=== PATIENT | male | born 1985 | race Caucasian/White ===

== ENCOUNTER 2022-09-08 08:49 | Emergency (ER) | payer OTHER, SELFPAY ==
--- NOTE | 2022-09-08 09:00 | ED.GENADULT ---
HPI - General Adult General Chief complaint: Anxiety Stated complaint: anxiety attack; chest heaviness Time Seen by Provider: 09/08/22 09:00 History of Present Illness HPI narrative: the patient is a 37-year-old male with history of anxiety attacks, that happen every few months, last episode approximately 5 months ago. Other comorbidities include hypertension on hydrochlorothiazide and lisinopril, depression bipolar affective disorder on lithium and citalopram, as well as hyperlipidemia. He does smoke cigarettes. No alcohol use. No drug use. The patient was driving home with his in the car by he suddenly felt quite anxious, with symptoms typical of his anxiety attacks, onset at 7:30 a.m. this morning. he felt warm and flushed, with a fast heart rate, and dizziness. He is feeling quite anxious. No stressors out of the ordinary. Some chest heaviness that he described earlier with symptoms improved. No dyspnea. No abdominal pain. Nausea present but no vomiting. No urinary symptoms. No URI symptoms. Related Data Home Medications Medication Instructions Recorded Confirmed atorvastatin 20 mg tablet 20 mg PO DAILY 09/08/22 09/08/22 citalopram 40 mg tablet (Celexa) 40 mg PO HS 09/08/22 09/08/22 lisinopril 20 1 tablet PO DAILY 09/08/22 09/08/22 mg-hydrochlorothiazide 25 mg tablet lithium carbonate 450 mg 450 mg PO BID 09/08/22 09/08/22 tablet,extended release Allergies Allergy/AdvReac Type Severity Reaction Status Date / Time brompheniramine Allergy Hives Verified 09/08/22 08:58 [From Dimetapp (brompheniramine-PPA)] phenylpropanolamine Allergy Hives Verified 09/08/22 08:58 [From Dimetapp (brompheniramine-PPA)] sertraline [From Zoloft] Allergy Hives Verified 09/08/22 08:58 Review of Systems Review of Systems: All systems reviewed & are unremarkable except as noted in HPI and below Constitutional: Constitutional: Denies chills, Denies excessive sweating, Denies fatigue, Denies fever(s), Denies headache(s) and Denies weakness Eyes: Eyes: Denies change in vision and Denies photophobia ENT: Denies dysphagia, Denies dizziness, Denies headache(s), Denies lip swelling, Denies nasal congestion, Denies sore throat and Denies tongue swelling Cardiovascular: Cardiovascular: Denies chest pain, Denies syncope, Reports rapid heart rate and Denies dyspnea Respiratory: Respiratory: Denies cough, Denies dyspnea and Denies wheezing Gastrointestinal: Gastrointestinal: Denies abdominal pain, Denies constipation, Denies dysphagia, Denies diarrhea, Reports nausea and Denies vomiting Genitourinary: Genitourinary: Denies hematuria, Denies dysuria, Denies urinary frequency and Denies urinary urgency Musculoskeletal: Musculoskeletal: Denies back pain, Denies myalgias, Denies arthralgias, Denies joint swelling and Denies numbness Integumentary/Breasts: Skin/Breast: Denies pruritus, Denies erythema and Denies rash Neurologic: Denies confusion, Reports dizziness, Denies syncope, Denies headache(s), Denies focal weakness, Denies numbness and Denies weakness Psychiatric: Psychiatric: Reports anxiety and Denies confusion Endocrine: Endocrine: Denies excessive sweating and Denies fatigue Hematologic/Lymphatic: Hematologic/Lymphatic: Denies easy bleeding and Denies easy bruising Allergic/Immunologic: Allergic/Immunologic: Denies lip swelling, Denies tongue swelling and Denies wheezing PMFSH Social History Social History Substance use type: does not use Exam Const: General: healthy appearing, no acute distress, alert and well nourished Nutritional Appearance: well nourished Orientation/consciousness: patient oriented x3 Limitations: no limitations HENMT: Head: normal to inspection Ears: external ears normal Face/Nose/Sinus: normal facial exam Face and sinus: normal facial exam Mouth: Yes moist mucous membranes Throat: posterior oropharynx normal
[2022-09-08 09:04] VITALS: BP 114/79; PULSE 70; RESP 20; O2SAT 99
--- NOTE | 2022-09-08 09:05 | ECG_ITS ---
Measurements Intervals [place] Rate: 70 P: 60 LA: 196 QRS: 44 QRSD: 93 T: 33 QT: 379 QTc: 409 Interpretive Statements SINUS RHYTHM NORMAL ECG NO PREVIOUS ECG AVAILABLE FOR COMPARISON Electronically Signed On 09-08-2022 9:40:27 CDT by Mauro Fox M.D.
[2022-09-08 09:15] VITALS: TEMP 36.9
[2022-09-08] MEDS: LORazepam INJ (*CRX) 2 MG/ML VIAL 0.5 MG IV PUSH (09:24)
[2022-09-08] MEDS: ONDANSETRON INJ 4 MG/2 ML VIAL IV PUSH (09:24)
[2022-09-08 09:25] LABS: Basophils Absolute Auto 0.05 K/mm3 (0.00-0.10); Basophils Percent Auto 0.8 % (0.0-1.0); Eosinophils Absolute Auto 0.31 K/mm3 (0.02-0.50); Eosinophils Percent Auto 5.1 % (1.0-6.0); Hematocrit 39.7 % (40.0-54.0); Hemoglobin 12.9 g/dL (14.0-18.0); Immature Granulocyte Absolute 0.02 K/mm3 (0.00-0.00); Immature Granulocyte Percent A 0.3 % (0.0-0.0); Lymphocytes Absolute Auto 1.91 K/mm3 (1.10-4.50); Lymphocytes Percent Auto 31.7 % (18.0-42.0); Mean Corpuscular HGB Conc 32.5 g/dL (32.0-36.0); Mean Corpuscular Hemoglobin 30.8 pg (27.0-31.0); Mean Corpuscular Volume 94.7 fL (78.0-102.0); Mean Platelet Volume 9.3 fl (8.7-11.0); Monocytes Absolute Auto 0.43 K/mm3 (0.10-0.90); Monocytes Percent Auto 7.1 % (2.0-11.0); Neutrophils Absolute Auto 3.3 K/mm3 (1.7-7.2); Platelet Count Result 293 K/mm3 (150-420); Red Blood Count 4.19 M/mm3 (4.70-6.10); Red Cell Distribution Width 12.6 % (11.6-14.4)
[2022-09-08 09:47] LABS: Alanine Aminotransferase 16 U/L (16-63); Albumin Level 3.9 g/dL (3.4-5.0); Alkaline Phosphatase 87 U/L (46-116); Anion Gap 6 mmol/L (8-16); Aspartate Amino Transferase 13 U/L (15-37); Bilirubin,Total 0.4 mg/dL (0.00-1.00); Blood Urea Nitrogen 16 mg/dL (7-18); Calcium 9.4 mg/dL (8.5-10.1); Carbon Dioxide 26 mmol/L (21-32); Chloride 104 mmol/L (98-108); Estimated CRCL calculation 84 ml/min; Estimated Glomerular Filt Rate > 60; Glucose 95 mg/dL (70-99); Magnesium 1.9 mg/dL (1.8-2.4); Osmolality Calculated 283 mOsm/kg (285-295); Potassium 4.1 mmol/L (3.5-5.1); Sodium 136 mmol/L (136-145); Total Protein 6.8 g/dL (6.4-8.2)
[2022-09-08 09:48] LABS: Troponin I < 4.0 ng/L (0.00-60.4)
[2022-09-08 10:52] VITALS: BP 101/56; PULSE 60; RESP 15; O2SAT 98
[2022-09-08 11:08] VITALS: BP 111/74; PULSE 61; RESP 16; TEMP 36.7; O2SAT 96
--- NOTE | 2022-09-08 11:08 | PC.NURSE ---
Pt states is feeling much better without anxiety or pain at this time.
== END 2022-09-08 11:15 | disposition home or self-care (01) ==
PROVIDERS: Emergency Provider Emergency Medicine
DX: F41.9 Anxiety disorder, unspecified (principal); E78.5 Hyperlipidemia, unspecified; F17.210 Nicotine dependence, cigarettes, uncomplicated
CPT/HCPCS: 36415; 80053; 83735; 84484; 85025; 93005; 96374; 96375; 99284; J2060; J2405

== ENCOUNTER 2022-10-07 18:30 | Emergency (ER) | payer OTHER, SELFPAY ==
[2022-10-07 18:32] VITALS: BP 136/92; PULSE 100; RESP 20; TEMP 36.6; O2SAT 97
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
[2022-10-07] MEDS: LORazepam (*CRX) 0.5 MG TABLET PO (18:58)
[2022-10-07 19:12] VITALS: BP 105/58; PULSE 68; RESP 16; O2SAT 100
== END 2022-10-07 19:12 | disposition home or self-care (01) ==
LOC: CHSED 19:00
PROVIDERS: Emergency Provider Emergency Medicine
DX: F41.0 Panic disorder [episodic paroxysmal anxiety] (principal)
CPT/HCPCS: 99283; A9270